=== PATIENT | male | born 1955 | race Two or more races ===

== ENCOUNTER 2023-01-17 06:17 | Inpatient (IN) | payer OTHER ==
[~2023-01-17] VITALS: Ht 152.4 cm; Wt 86.9 kg
[~2023-01-17 06:17] MED LIST: FINA5TAB4 PO; TAMS0.4C36 PO
[2023-01-17] MEDS ORDERED: BUPIVACAINE 0.25% INJ 50ML VIAL ONE (07:13)
[2023-01-17] MEDS ORDERED: LIDOCAINE W/ EPINEPHRINE 1% 20ML VIAL ONE (07:14)
[2023-01-17] MEDS ORDERED: SUCCINYLCHOLINE CHLORIDE 20 MG/ML 10ML VIAL IV ONE (07:19)
[2023-01-17] MEDS ORDERED: LIDOCAINE 2% JELLY 11ml (GLYDO) ONE (07:19)
[2023-01-17] MEDS ORDERED: fentaNYL CITRATE 100 MCG/2 ML VL ONE (07:27)
[2023-01-17] MEDS ORDERED: MIDAZOLAM HCL 2MG/2ML 2ml VIAL (1mg/ml) ONE (07:27)
[2023-01-17] MEDS ORDERED: HYDROmorphone HCL 2 MG/ML VL/or syr ONE (07:27)
[2023-01-17] MEDS ORDERED: fentaNYL CITRATE 5 ML ONE (07:28)
[2023-01-17] MEDS ORDERED: ceFAZolin 1GM/50ML 100 ML IV ONE (07:38)
[2023-01-17] MEDS ORDERED: DexAMETHasone SOD PHOS 10MG/1ML VIAL INJ ONE (07:52)
[2023-01-17] MEDS ORDERED: HYDROmorphone HCL 2 MG/ML VL/or syr IV PRN (09:15)
[2023-01-17] MEDS ORDERED: ePHEDrine SULFATE 50 MG/ML AMP IV PRN (09:15)
[2023-01-17] MEDS ORDERED: ONDANSETRON HCL 4 MG/2 ML VIAL IV PRN ×2 (09:15→12:45)
[2023-01-17] MEDS ORDERED: LABETALOL HCL 5 MG/ML 4ML SYRINGE IV PRN (09:15)
[2023-01-17] MEDS ORDERED: MORPHINE SULFATE 4 MG/ML SYR/VIAL IV PRN ×2 (09:15→12:45)
[2023-01-17] MEDS ORDERED: MIDAZOLAM HCL 2MG/2ML 2ml VIAL (1mg/ml) IV PRN (09:15)
[2023-01-17] MEDS ORDERED: PROPOFOL 10 MG/ML 20 ML IV ONE ×2 (09:31→12:10)
[2023-01-17] MEDS ORDERED: NEOSTIGMINE 1 MG/ML INJ (10mg/10ML VIAL) ONE (12:12)
[2023-01-17] MEDS ORDERED: GLYCOPYRROLATE 0.2 MG/ML 1ML VIAL ONE (12:12)
[2023-01-17] MEDS ORDERED: NITROGLYCERIN 0.4 MG SL TAB SL PRN (12:45)
[2023-01-17] MEDS ORDERED: ACETAMINOPHEN 500 MG TAB PO PRN (12:45)
[2023-01-17] MEDS ORDERED: MORPHINE SULFATE INJ 2 MG/ml SYRG IV PRN (12:45)
[2023-01-17] MEDS ORDERED: ceFAZolin 1GM/50ML 50 ML IV ONE (12:45)
[2023-01-17 15:15] VITALS: BP 123/71
[2023-01-17 16:08] LABS: Basophils # (auto) 0 10 ^3/uL (0-0.2); Basophils % (auto) 0.1 % (0.0-2.0); Eosinophils # (auto) 0 10 ^3/uL (0-0.8); Hematocrit 39.6 % (41.0-53.0); Hemoglobin 13.1 g/dL (13.5-17.5); Lymphocytes # (auto) 0.9 10 ^3/uL (0.4-5.4); Lymphocytes % (auto) 5.4 % (10.0-50.0); Mean Corpuscular Hemoglobin 31.9 pg (28.0-32.0); Mean Corpuscular Volume 96.7 fL (80.0-100.0); Monocytes % (auto) 5.9 % (0.0-12.0); Neutrophils # (auto) 14.5 10 ^3/uL (1.6-8.6); Neutrophils % (auto) 88.6 % (37.0-80.0); Red Blood Cells 4.09 10^6/uL (4.5-5.90); Red Cell Distribution Width 14.4 % (11.8-14.3); White Blood Cell 16.3 10^3/uL (4.4-10.8)
[2023-01-17 16:54] VITALS: BP 123/71
[2023-01-17] MEDS: SODIUM CHLORIDE 0.9% 1,000 ML IV SCH (17:51)
[2023-01-17] MEDS: HYDROmorphone HCL 2 MG/ML VL/or syr IV PRN (18:25)
[2023-01-17 22:00] VITALS: BP 111/70
[2023-01-18 05:00] VITALS: BP 109/61
[2023-01-18] MEDS: SODIUM CHLORIDE 0.9% 1,000 ML IV SCH ×2 (06:27→12:44)
[2023-01-18] MEDS: HYDROmorphone HCL 2 MG/ML VL/or syr IV PRN ×2 (06:33→17:45)
[2023-01-18 09:00] VITALS: BP 101/54
[2023-01-18 13:00] VITALS: BP 107/60
[2023-01-18 16:47] VITALS: BP 117/67
[2023-01-18 18:51] VITALS: BP 127/73
== END 2023-01-18 19:15 | disposition home or self-care (01) | DRG 708 ==
LOC: SUR 06:17 → OVERFLOW 12:45 → EAST 14:56
PROVIDERS: ADMIT Obstetrics & Gynecology; ATTEND Urology
PROC: 8E0W4CZ Robotic Assisted Procedure of Trunk Region, Percutaneous Endoscopic Approach (ICD-10-PCS; 2023-01-17)
PROC: 07TC4ZZ Resection of Pelvis Lymphatic, Percutaneous Endoscopic Approach (ICD-10-PCS; 2023-01-17)
PROC: 0VT04ZZ Resection of Prostate, Percutaneous Endoscopic Approach (ICD-10-PCS; principal; 2023-01-17 07:45)
DX: C61 Malignant neoplasm of prostate (principal); N40.0 Benign prostatic hyperplasia without lower urinary tract symptoms; Z80.6 Family history of leukemia
CPT/HCPCS: 36415; 85025; 86850; 86900; 86901; G0378; J0330; J0690; J1100; J2250; J2704; J3490